=== PATIENT | male | born 1950 | race Two or more races ===

== ENCOUNTER 2021-04-16 10:54 | Outpatient (CLI) | payer OTHER | END 2021-04-16 15:00 | disposition home or self-care (01) | LOC: LAB 10:54 | PROVIDERS: ATTEND Urology | DX: R97.20 Elevated prostate specific antigen [PSA] (principal) ==

== ENCOUNTER 2021-05-18 07:34 | Outpatient (CLI) | payer OTHER | END 2021-05-18 07:45 | disposition home or self-care (01) | LOC: SONOGRAMA 07:34 | PROVIDERS: ATTEND Urology | DX: C61 Malignant neoplasm of prostate (principal); D29.1 Benign neoplasm of prostate; R97.20 Elevated prostate specific antigen [PSA] ==

== ENCOUNTER 2021-05-29 11:05 | Outpatient (CLI) | payer OTHER | END 2021-05-29 11:11 | disposition home or self-care (01) | LOC: TOM 11:05 | PROVIDERS: ATTEND Urology | DX: C61 Malignant neoplasm of prostate (principal); N43.3 Hydrocele, unspecified ==

== ENCOUNTER 2021-06-08 07:51 | Outpatient (CLI) | payer OTHER | END 2021-06-08 07:52 | disposition home or self-care (01) | LOC: NUCLEAR 07:51 | PROVIDERS: ATTEND Urology | DX: N43.3 Hydrocele, unspecified (principal); C61 Malignant neoplasm of prostate | CPT/HCPCS: 78803; A9503 ==

== ENCOUNTER 2021-08-24 08:45 | Inpatient (IN) | payer OTHER ==
[~2021-08-24] VITALS: Ht 170.2 cm; Wt 68.5 kg
[2021-08-24] MEDS ORDERED: CARVEDILOL ER80 MG PO (12:44)
[2021-08-24] MEDS ORDERED: COZAAR50 MG PO (12:44)
[2021-08-24] MEDS ORDERED: FARXIGA10 MG PO (12:45)
[2021-08-24] MEDS ORDERED: SIMVASTATIN40 MG PO (12:45)
[2021-08-24] MEDS ORDERED: GLUMETZA1000 MG PO (12:45)
[2021-08-24] MEDS ORDERED: GLIPIZIDE XL5 MG PO (12:46)
[2021-08-29] MEDS ORDERED: FLECAINIDE ACE100 MG (07:57)
[2021-08-29] MEDS ORDERED: FUSION PLUS CA1 EACH (07:58)
== END 2021-08-31 12:23 | disposition home or self-care (01) | DRG 707 ==
LOC: O/R 08-29 05:42 → SURH 08-29 05:42
PROVIDERS: ADMIT Urology; ATTEND Urology
PROC: 0VT00ZZ Resection of Prostate, Open Approach (ICD-10-PCS; 2021-08-29)
PROC: 0VT30ZZ Resection of Bilateral Seminal Vesicles, Open Approach (ICD-10-PCS; 2021-08-29)
PROC: 0HB7XZZ Excision of Abdomen Skin, External Approach (ICD-10-PCS; 2021-08-29)
PROC: 07TC0ZZ Resection of Pelvis Lymphatic, Open Approach (ICD-10-PCS; principal; 2021-08-29 07:00)
DX: C61 Malignant neoplasm of prostate (principal); C77.5 Secondary and unspecified malignant neoplasm of intrapelvic lymph nodes; D18.01 Hemangioma of skin and subcutaneous tissue; Z20.822 Contact with and (suspected) exposure to COVID-19

== ENCOUNTER 2021-09-11 11:27 | Outpatient (CLI) | payer OTHER ==
[~2021-09-11 11:27] MED LIST: CARVEDILOL ER80 MG PO; COZAAR50 MG PO; FARXIGA10 MG PO; FLECAINIDE ACE100 MG; FUSION PLUS CA1 EACH; GLIPIZIDE XL5 MG PO; GLUMETZA1000 MG PO; SIMVASTATIN40 MG PO
== END 2021-09-11 11:30 | disposition home or self-care (01) ==
LOC: LAB 11:27
PROVIDERS: ATTEND Urology
DX: C61 Malignant neoplasm of prostate (principal); N30.00 Acute cystitis without hematuria; D62 Acute posthemorrhagic anemia

== ENCOUNTER → 2022-04-17 09:48 | Outpatient (CLI) | payer OTHER | END | disposition home or self-care (01) | LOC: LAB 09:48 | PROVIDERS: ATTEND Urology | DX: C61 Malignant neoplasm of prostate (principal) ==

== ENCOUNTER 2024-01-07 14:29 | Emergency (ER) | payer OTHER ==
[~2024-01-07] VITALS: Ht 167.6 cm; Wt 63.5 kg
[2024-01-07] MEDS ORDERED: ERLEADA60 MG (14:52)
[2024-01-07] MEDS ORDERED: RINGERS SOLUTION,LACTATED 1,000 ML IV STA (17:19)
[2024-01-07] MEDS ORDERED: INSULIN REGULAR, HUMAN 1,000 UNIT/10 ML UNITS SUBCUTANEO STA (17:21)
[2024-01-07] MEDS ORDERED: INSULIN REGULAR, HUMAN 1,000 UNIT/10 ML UNITS IV STA (17:22)
[2024-01-07 18:18] LABS: ALBUMIN 3.8 gm/dL (3.4-5.0); BILIRUBIN TOTAL 1.03 mg/dL (0.3-1.2); CREATININE SERUM 1.31 mg/dL (0.70-1.30); GFR 53.49; GLOBULINA 3.4 G/DL (2.4-3.5); POTASSIUM 4.25 mEq/L (3.5-5.1); TOTAL PROTEIN 7.2 gm/dL (6.4-8.2)
[2024-01-07 20:04] LABS: HEMATOCRIT 33.6 % (39.0-48.0); HEMOGLOBIN 12.4 g/dL (13-16.00); MEAN CELL VOLUME 92.7 fL (80.0-100.00); MEAN CORPUSCULAR HEMOGLOBIN 34.2 pg (27.00-32.0); MEAN CORPUSCULAR HGB CONC 36.9 g/dl (32.0-36.0); PLATELET COUNT 174 K/uL (150-450); RED BLOOD COUNT 3.62 M/uL (4.00-6.00); RED CELL DISTRIBUTION WIDTH 12.9 % (11.5-14.5)
== END 2024-01-07 22:14 | disposition home or self-care (01) ==
LOC: ER 14:30
DX: E11.65 Type 2 diabetes mellitus with hyperglycemia (principal)
CPT/HCPCS: 36415; 96365; 99282; J1815